=== PATIENT | female | born 1955 | race Caucasian/White ===

== ENCOUNTER → 2019-05-24 | Outpatient (CLI) | payer MEDICARE | LOC: MAMMO 10:03 | PROVIDERS: ATTEND Internal Medicine | DX: Z12.31 Encounter for screening mammogram for malignant neoplasm of breast (principal) | CPT/HCPCS: 77067 ==

== ENCOUNTER → 2020-11-07 | Outpatient (CLI) | payer MEDICARE | LOC: MAMMO 11:07 | PROVIDERS: ATTEND Internal Medicine | DX: Z12.31 Encounter for screening mammogram for malignant neoplasm of breast (principal) | CPT/HCPCS: 77067 ==

== ENCOUNTER → 2022-10-27 | Outpatient (CLI) | payer MEDICARE | LOC: MAMMO 08:45 | PROVIDERS: ATTEND Internal Medicine | DX: Z12.31 Encounter for screening mammogram for malignant neoplasm of breast (principal) | CPT/HCPCS: 77067 ==